=== PATIENT | female | born 1965 ===

== ENCOUNTER 2018-09-29 17:26 | Emergency (ER) | payer OTHER ==
[2018-09-29 17:34] VITALS: BP 166/90; PULSE 74; RESP 16; TEMP 97.5; O2SAT 99
[2018-09-29] MEDS: AMOXICILLIN 250 MG CAP PO ONE (18:21)
[2018-10-09] MEDS: AMOXICILLIN 250 MG CAP PO ONE (07:45)
== END 2018-09-29 18:44 | disposition home or self-care (01) | DRG 761 ==
LOC: ED 17:26
DX: T19.2XXA Foreign body in vulva and vagina, initial encounter (principal)
CPT/HCPCS: 99282; 99283; A9270-GY